=== PATIENT | female | born 1965 ===

== ENCOUNTER 2017-07-24 16:50 | Emergency (ER) | payer OTHER ==
[2017-07-24 16:59] VITALS: BP 147/91; PULSE 103; RESP 18; TEMP 98.6; O2SAT 95
--- NOTE | 2017-07-24 17:17 | EDPHY ---
General Time Seen by Provider: 07/24/17 17:03 Narrative: CHIEF COMPLAINT: Low back pain HISTORY OF PRESENT ILLNESS: Patient complains of left lower back pain that started last night around 8:00 p.m.. This started while lying down after working. It radiates in the left buttock. There is no midline tenderness of the low back. No trauma to the low back. No numbness or tingling below the area of pain. No numbness or tingling of the genitalia or perineum. No incontinence of bowel or bladder. No difficulty ambulating. The symptoms are [id number]. They are worse with ambulation and palpation. Improved at rest. No other associated complaints or modifying factors. REVIEW OF SYSTEMS: Ten systems reviewed and are negative unless otherwise noted in the HPI PCP: None SPECIALISTS: None PAST MEDICAL HISTORY: Denies any medical history PAST SURGICAL HISTORY: remotely SOCIAL HISTORY: Nonsmoker. Lives here locally with her spouse. Works here at [employer] in [place] FAMILY HISTORY: Noncontributory EXAMINATION General Appearance: Alert, no distress. Well-developed well-nourished Head: normocephalic, atraumatic Eyes: Pupils equal and round, no conjunctival pallor or injection ENT, Mouth: Mucous membranes moist Neck: Normal inspection, supple, non-tender Respiratory: Lungs are clear to auscultation. No wheeze, rhonchi or crackles Cardiovascular: Regular rate and rhythm no murmur Back: No midline tenderness of the lumbar thoracic spine. No crepitus or deformity. No step-off. There is tenderness of the left lower back over the SI joint. Neurological: A&O, nonfocal, normal gait. Strength is symmetric in the ankles , knees and hips. Symmetric patellar reflexes 2+. Skin: Warm and dry, no rash Extremities: Nontender, no pedal edema. Symmetric range of motion of lower extremities. Psychiatric: Mood and affect normal DIFFERENTIAL DIAGNOSES: Including but not limited to sciatica, lumbar radiculopathy, sacroiliitis, muscular strain, sprain MDM: 5:15 p.m. Acute left-sided sciatica with no midline tenderness. No saddle anesthesia. No incontinence of bowel or bladder. Her neuro exam is fully within normal limits with excellent strength and mobility. I do not feel she warrants any imaging at this time as she has had no trauma no midline tenderness. I will treat her with symptomatic medications. We discussed follow up with primary care physician, which we will provide today. We discussed further follow-up care. We discussed ED precautions sinus symptoms. I have answered all her questions. She is discharged home stable condition. HPI, physical exam, disposition planning was all done using the hospital's certified Somali translator/interpreter. SUPERVISION: This patient was independently evaluated without direct involvement of or examination by the attending physician. - History Smoking Status: Never smoked - Objective Vital Signs: Initial Vital Signs Temperature (C) 98.6 F 07/24/17 16:55 Heart Rate 103 H 07/24/17 16:55 Respiratory Rate 18 07/24/17 16:55 Blood Pressure 147/91 H 07/24/17 16:55 O2 Sat (%) 95 07/24/17 16:55 O2 Delivery Mode Room Air Allergies/Adverse Reactions: No Known Allergies Allergy (Unverified 07/24/17 16:55) Home Medications: Medication Instructions Recorded Cyclobenzaprine [Flexeril 10 MG 10 mg PO TID PRN #11 tab 07/24/17 (*)] Tylenol Extra Strength 07/24/17 predniSONE [Deltasone] 60 mg PO DAILY #15 tablet 07/24/17 Departure - Departure Disposition: Home, Routine, Self-Care Clinical Impression: Acute left-sided low back pain with sciatica Qualifiers: Sciatica laterality: sciatica of left side Qualified Code(s): M54.42 - Lumbago with sciatica, left side Condition: Good Instructions: Sciatica (ED), Piriformis Syndrome (ED), Lower Back Exercises (ED ) Additional Instructions: 1. Medications as prescribed and discussed 2. Advil 400 mg every 8 hr as needed 3. Contact [facility] to establish an for outpatient care 4. ED precautions as discussed 1. Medicamentos raúl le fueron recetados y discutidos. 2. Advil 400 mg cada 8 horas raúl sea necesario. 3. Contacte a [facility] para establecer cuidado ambulatorio. 4. Precauciones del departamento de emergencias raúl se discutio. Referrals: [facility],. [Clinic] - As per Instructions Adriana Gerardo DO [Doctor of Osteopathy] - As per Instructions Stand Alone Forms: Work Excuse Prescriptions: Cyclobenzaprine [Flexeril 10 MG (*)] 10 mg PO TID PRN #11 tab PRN Reason: Spasms predniSONE [Deltasone] 60 mg PO DAILY #15 tablet Print Language: Somali
== END 2017-07-24 17:37 | disposition home or self-care (01) ==
DX: M54.42 Lumbago with sciatica, left side (principal)